=== PATIENT | female | born 1990 | race Caucasian/White ===

== ENCOUNTER 2017-07-07 14:48 | Emergency (ER) | payer OTHER ==
[~2017-07-07] VITALS: Ht 170.2 cm; Wt 65.5 kg
[2017-07-07 14:53] VITALS: TEMP 36.7; Ht 170.2 cm; Wt 65.5 kg
--- NOTE | 2017-07-07 15:14 | EMERGENCY ROOM VISIT NOTE ---
History First contact with patient: 14:57 Chief Complaint: DENTAL PAIN Stated Complaint: MOUTH TEETH HURT, TOOTH INFECTION Nursing Triage Summary: pt reports bilat upper dental dental pain states teeth have been breaking off called dentist has appt on tuesday History of Present Illness The patient is a 27 year old female who presents to the Emergency Room with complaints of dental pain. The patient reports that she believes she may have an infection in her wisdom teeth. She states that a few weeks ago, both of her upper wisdom teeth broke off. She states that she first developed soreness in her left upper teeth, and now has pain in the right upper teeth. She states the pain is constant and makes it very difficult to eat. She describes it as a throbbing pain and rates the discomfort a 6/10. She has been taking Tylenol, ibuprofen and using Orajel without relief. She feels that the right upper jaw is slightly swollen. She denies fevers or difficulty breathing/swallowing. She denies history of dental problems. She did contact a dentist and has an appointment next week. Review of Systems A complete 10 point review of systems was reviewed with the patient with pertinent positives and negatives as per history of present illness. All else were negative. Past Medical/Surgical History Medical Problems: (1) Asthma (2) Bronchitis Family History FH: heart attack FHx: cardiovascular disease Social History Smoking Status: Current Every Day Smoker Alcohol Use: none Marital Status: Housing Status: lives with significant other Current/Historical Medications Scheduled Penicillin V Potassium (Veetids), 500 MG PO QID [Oragel], 1 DOSE PO PRN Scheduled PRN Acetaminophen (Tylenol), 2 TABS PO Q6 PRN for Pain Hydrocodone/Acetaminophen 5MG/325MG (Osage 5MG/325MG), 1-2 TABLET PO Q4H PRN for Pain Ibuprofen (Advil), 400-600 MG PO Q6H PRN for Pain Physical Exam Vital Signs Date Time Temp Pulse Resp B/P (MAP) Pulse Ox O2 Delivery O2 Flow Rate FiO2 07/07/17 15:27 112 18 134/90 99 07/07/17 14:53 36.7 112 18 134/90 99 Room Air Physical Exam VITALS: Vitals are noted on the nurse's note and reviewed by myself. Vital signs stable. GENERAL: This is a 27-year-old female, in no acute distress, nondiaphoretic, well-developed well-nourished. SKIN: The skin was without rashes. EARS: External auditory canals clear, tympanic membranes pearly lara without erythema or effusion bilaterally. EYES: Pupils equal round and reactive to light and accommodation. MOUTH: Mucous membranes moist. The right upper wisdom tooth is broken off and the surrounding gums are slightly edematous. Gums are otherwise normal in appearance. No evidence of obvious abscess. FACE: No facial swelling. NECK: Supple without nuchal rigidity. No lymphadenopathy. HEART: Regular rate and rhythm without murmurs gallops or rubs. LUNGS: Clear to auscultation bilaterally without wheezes, rales or rhonchi. No retractions or accessory muscle use. NEURO: Patient was alert and oriented to person place and time. Medical Decision & Procedures Medical Decision Differential diagnosis includes dental infection, periapical abscess, facial cellulitis, Dami's angina, among others. The patient was evaluated as above. Exam shows no evidence of an obvious dental abscess or Dami's angina. She is well-appearing. She will be placed on penicillin. She was given a short course of Osage for pain. She was advised to follow-up with the dentist as scheduled. She will return for worsening symptoms, specifically facial swelling or fevers. She verbalized understanding of my assessment and treatment plan and was discharged home in good condition. [facility] Monitoring Program Search Results: patient reviewed within database, no issues identified Medication Reconcilliation Current Medication List: was personally reviewed by nh Blood Pressure Screening Patient's blood pressure: Normal blood pressure Impression Primary Impression: Dentalgia Departure Information Dispostion Home / Self-Care Condition GOOD Prescriptions Hydrocodone/Acetaminophen 5MG/325MG (Osage 5MG/325MG) Tab 1-2 TABLET PO Q4H Y for Pain, #15 TAB For Initial Treatment Prov: Taryn Fermin PA-C 07/07/17 Penicillin V Potassium (Veetids) 500 Mg Tab 500 MG PO QID for 10 Days, #40 TAB Prov: Taryn Fermin PA-C 07/07/17 Referrals No Doctor, Assigned (PCP) Patient Instructions [facility] Additional Instructions You have been treated in the Emergency Department for Dental Pain. You have been prescribed Osage to be used for pain control. This is a narcotic medication. You cannot drive or consume alcohol while on this medicine. This medicine should only be used for pain that cannot be controlled with over-the- counter pain medicines. You were prescribed Penicillin to be taken as prescribed. This is an antibiotic. All antibiotics have the potential to cause diarrhea. Stop this medication and contact a medical provider if you were to develop any significant adverse side effects including: wheezing, shortness of breath, passing out, vomiting, or a diffuse rash. Always take antibiotics as directed and COMPLETE the ENTIRE course regardless of the improvement of your symptoms. For pain control, you can use the following [id number] medicines (if >12 yo): - Regular strength (325mg/tab) Tylenol (acetaminophen) 2 tabs every 4-6 hours as needed. Do not exceed 12 tablets in a 24 hour period. Avoid taking more than 4 grams (4000 mg) of Tylenol per day. This includes any other sources of acetaminophen you may take on a regular basis. - Regular strength (200 mg/tab) Advil (ibuprofen) 1-2 tabs every 4-6 hours as needed. Do not exceed a dose of 3200 mg per day. Refrain from smoking cigarettes or using chewing tobacco until you have been evaluated by your dentist. Keeping beverages lukewarm and consuming soft foods can decrease your pain. Warm compresses over the affected area may offer some relief. You MUST seek evaluation of your dental pain by a dentist following your visit to the Emergency Department. The Emergency Department is not capable of treating dental issues long-term. You should call your dentist as soon as possible to make an appointment for evaluation of your dental pain. Return to the emergency department if you develop the following symptoms despite treatment course outlined above: fever, intractable pain, increased redness, swelling, or purulent discharge.
[2017-07-07] MEDS ORDERED: ORAGEL PO (15:17)
[2017-07-07] MEDS ORDERED: ACET-1256 PO (15:17)
[2017-07-07] MEDS ORDERED: IBUP-1050 PO (15:17)
[2017-07-07] MEDS ORDERED: HYDR-5688 PO (15:20)
[2017-07-07] MEDS ORDERED: PENI-82 PO (15:20)
[2017-07-07 15:27] VITALS: BP 134/90; PULSE 112; O2SAT 99
== END 2017-07-07 15:28 | disposition home or self-care (01) ==
LOC: C.EDB 14:49 → C.EDD 15:28
DX: K08.89 Other specified disorders of teeth and supporting structures (principal); F17.210 Nicotine dependence, cigarettes, uncomplicated

== ENCOUNTER 2023-05-28 21:39 | Inpatient (IN) ==
--- NOTE | 2023-05-28 22:10 | Emergency Department Note ---
Impression & Plan SOB (shortness of breath), Asthma exacerbation, Tachycardia, Pneumonia, Rhinovirus infection ED Provider Note NAME: DENNY RAMIREZ AGE: 33 SEX: F : 1990 ARRIVES VIA: Walk-In INFORMANT: [Patient][] ED PROVIDER(S): [Frederick Landaverde MD] CHIEF COMPLAINT: Flulike symptoms HISTORY OF PRESENT ILLNESS: The patient is a 33-year-old female with asthma. She has had flulike symptoms for 2 weeks. She has had a cough, fatigue, nausea, congestion. She has had some body aches. No documented fever. Patient states that 3 days ago, her voice turned hoarse. She states that she vomited yesterday. She feels very nauseated. She feels short of breath. Patient presents to the ED for evaluation as things seem to be getting worse. PMHx/PSHx/Social Hx: See Below PHYSICAL EXAM: GENERAL: Patient is in no acute distress. HEENT: No acute trauma, normocephalic atraumatic, mucous membranes moist, no nasal congestion. No throat erythema or exudate. NECK: No stridor, no adenopathy, no meningismus, trachea is midline. LUNGS: Dry cough noted. Diminished breath sounds bilaterally, wheezing bilaterally. No respiratory distress. Hoarse voice noted. HEART: Mildly tachycardic, regular rhythm, no murmurs. ABDOMEN: Soft, nontender, no peritonitis. EXTREMITIES: No cyanosis, full range of motion of all the joints without pain or difficulty. NEUROLOGIC: Oriented x 3, no acute motor or sensory deficits, no focal weakness. SKIN: No jaundice, no diaphoresis. DIFFERENTIAL DIAGNOSIS: Bronchitis or pneumonia, viral illness, exacerbation of asthma, dehydration, among others. EMERGENCY DEPARTMENT PROCEDURES: MEDICAL DECISION MAKING: There is a significant leukocytosis at 19,000, this would be consistent with infection. There was a normal hemoglobin and platelet count. No renal failure or significant electrolyte abnormality. No concerning liver enzyme elevation. testing was negative. Lactic acid level is currently pending. Blood cultures are pending. Respiratory bio fire was positive for rhinovirus. Chest film shows bilateral lower lung patchy infiltrates consistent with pneumonia. On exam, patient was hoarse, wheezing, tachycardic. The patient was given a DuoNeb, oral prednisone. She received oral doxycycline and IV ceftriaxone. She was given IV Zofran for nausea. Patient has asthma, she has been sick for 2 weeks. She has been vomiting. She is now tachycardic and appears to have pneumonia on x-ray. I do think a hospital stay would be warranted. I spoke with the patient and case management, the on-call hospitalist was consulted. Prior/Outside records/notes reviewed: None Imaging/x-ray results per my interpretation: Chest x-ray shows bilateral lower lobe patchy infiltrates consistent with pneumonia. No pneumothorax. Chronic Medical/Social conditions affecting care: History of asthma Care/Management discussed with: Case management, the on-call hospitalist. Level of care consideration(s): After review of the information above and other included data: --I believe the patient requires escalation of care to admission DISPOSITION: Admission Past Med/Surg History Medical History Asthma Surgical History No pertinent past surgical history Social History Smoking Status: Current every day smoker Preferred Language: [place] Feels Safe at Home: Yes Allergies Allergies Allergy/AdvReac Type Severity Reaction Status Date / Time cat dander Allergy congestion, Verified 05/28/23 23:56 sneezy,whee zing dog dander Allergy congestion, Verified 05/28/23 23:56 sneezy,whee zy Home Meds Home Medications Medication Instructions Recorded Confirmed No Known Home Medications 05/28/23 05/28/23 Results & Data (ED) Vital Signs Vital Signs - 24 hr 05/28/23 21:41 05/28/23 21:56 05/28/23 21:59 Temperature 37 C 36.9 C Temperature Source Temporal Artery Scan Oral Pulse Rate 126 H 105 H Pulse Rate [Right Finger] 110 H Pulse Rhythm Regular Pulse Strength Normal Respiratory Rate 20 16 Respiratory Effort / Characteristics Non-Labored Spontaneous Respiratory Depth Normal Respiratory Pattern Regular Blood Pressure 120/80 Blood Pressure [Right Arm] 123/84 Blood Pressure Mean 93 Blood Pressure Mean [Right Arm] 97 Blood Pressure Position Sitting Pulse Oximetry 97 96 Oxygen Delivery Method Room Air Room Air Sepsis Recent Fever Within 48 Hours Yes Sepsis New/Unexplained Change in Mental Status N/A Sepsis Action Taken by Nursing No Action Required Home Medications Current Medication List: was personally reviewed by me Laboratory Data Attestation: I reviewed the patient's lab results. 05/28/23 22:37 05/28/23 22:37 Lab Results 05/28/23 05/28/23 Range/Units 22:06 22:37 WBC 19.15 H (4.8-10.8) K/ul RBC 4.44 (4.20-5.40) M/uL Hgb 12.9 (12.0-16.0) g/dl Hct 38.8 (37.0-47.0) % MCV 87.4 (80.0-100.0) fL MCH 29.1 (25.0-34.0) pg MCHC 33.2 (32.0-36.0) g/dL RDW Std Deviation 41.6 (36.4-46.3) fL RDW Coeff of Akira 13.1 (11.5-14.5) % Plt Count 372 (130-400) K/uL MPV 9.4 (9.4-12.4) fL Immature Gran % (Auto) 0.7 % Neut % (Auto) 85.0 % Lymph % (Auto) 6.6 % Curry % (Auto) 7.4 % Eos % (Auto) 0.0 % Baso % (Auto) 0.3 % Neut # (Auto) 16.27 H (1.40-6.50) K/uL Lymph # (Auto) 1.26 (1.20-3.40) K/uL Curry # (Auto) 1.42 H (0.11-0.59) K/uL Eos # (Auto) 0.00 (0.00-0.50) K/uL Baso # (Auto) 0.06 (0.00-0.20) K/uL Immature Gran # (Auto) 0.14 (0.01-0.20) K/uL Sodium 134 L (136-145) mmol/L Potassium 4.5 (3.5-5.1) mmol/L Chloride 97 L (98-107) mmol/L Carbon Dioxide 26 (21-32) mmol/L Anion Gap 11 (3-11) BUN 6 (6-23) mg/dl Creatinine 0.55 L (0.6-1.2) mg/dl Est Cr Clr Drug Dosing 127.3 ml/min Est GFR ( Amer) 143.8 ml/min Est GFR (Non-Af Amer) 124.1 ml/min BUN/Creatinine Ratio 10.9 (10-20) Glucose 157 H (70-99(Fasting)) mg/dl Calcium 9.2 (8.6-10.3) mg/dl Total Bilirubin 0.4 (0.2-1.0) mg/dl AST 14 (13-39) U/L ALT 14 (7-52) U/L Alkaline Phosphatase 92 (34-104) U/L Total Protein 7.5 (6.0-8.3) gm/dl Albumin 3.9 (3.4-5.0) gm/dl Globulin 3.6 (2.5-4.0) gm/dl Albumin/Globulin Ratio 1.1 (0.9-2) HCG, Qual Negative (Negative) Adenovirus (PCR) Not Detected (NotDetected) B. pertussis DNA (PCR) Not Detected (NotDetected) B.parapertussis DNA PCR Not Detected (NotDetected) C. pneumoniae DNA (PCR) Not Detected (NotDetected) Coronavirus OC43 (PCR) Not Detected (NotDetected) Coronavirus HKU1 (PCR) Not Detected (NotDetected) Coronavirus 229E (PCR) Not Detected (NotDetected) SARS-CoV-2 (PCR) Not Detected (NotDetected) Coronavirus NL63 (PCR) Not Detected (NotDetected) Human Metapneumovir PCR Not Detected (NotDetected) Influenza Type A (PCR) Not Detected (NotDetected) Influenza Type B (PCR) Not Detected (NotDetected) M. pneumoniae (PCR) Not Detected (NotDetected) Parainfluenza 1 (PCR) Not Detected (NotDetected) Parainfluenza 2 (PCR) Not Detected (NotDetected) Parainfluenza 3 (PCR) Not Detected (NotDetected) Parainfluenza 4 (PCR) Not Detected (NotDetected) RSV (PCR) Not Detected (NotDetected) Entero/Rhino (PCR) DETECTED A (NotDetected) Administered Medications Discontinued Medications Albuterol (Albut/Ipratrop 3mg/0.5mg Neb 3 Ml Vial) 3 ml NEB NOW STA; Protocol Stop: 05/28/23 22:11 Last Admin: 05/28/23 22:20 Dose: 3 ml Documented By: CHELSEY Sodium Chloride (Nss) 1,000 mls @ 999 mls/hr IV .Q1H1M ONE Stop: 05/28/23 23:10 Last Infusion: 05/28/23 23:44 Dose: Infused Documented By: Admin: 05/28/23 22:41 Dose: 999 mls/hr Documented By: CHELSEY Ceftriaxone Sodium (Rocephin) 2,000 mg in 50 mls @ 100 mls/hr IV NOW STA Stop: 05/28/23 23:30 Last Admin: 05/28/23 23:52 Dose: 100 mls/hr Documented By: CHELSEY Ondansetron HCl (Ondansetron Inj 2 Mg/Ml 2 Ml Vial) 4 mg IV NOW STA Stop: 05/28/23 22:11 Last Admin: 05/28/23 22:42 Dose: 4 mg Documented By: CHELSEY Prednisone (Prednisone 50 Mg Tab) 50 mg PO NOW STA Stop: 05/28/23 22:11 Last Admin: 05/28/23 22:20 Dose: 50 mg Documented By: CHELSEY Discharge Plan Visit Data Chief Complaint: Flu Like Symptoms Stated Complaint: COUGH ED Provider: Frederick Landaverde Discharge Problem: SOB (shortness of breath), Asthma exacerbation, Tachycardia, Pneumonia, Rhinovirus infection Patient Disposition: Admitted As Inpatient Condition: Fair Forms Stand Alone Forms: [employer] Software Prescriptions Prescriptions: No Action No Known Home Medications Referrals Referrals: PCP,NO [Physician] - Discharge Problem: Asthma exacerbation Qualifiers: Asthma severity: moderate Asthma persistence: persistent Qualified Code(s): J 45.41 - Moderate persistent asthma with (acute) exacerbation Pneumonia Qualifiers: Pneumonia type: due to unspecified organism Laterality: bilateral Lung location: unspecified part of lung Qualified Code(s): J18.9 - Pneumonia, unspecified organism
[2023-05-28] MEDS: ALBUT/IPRATROP 3MG/0.5MG NEB 3 ML VIAL NEB STA (22:20)
[2023-05-28] MEDS: predniSONE 50 MG TAB PO STA (22:20)
[2023-05-28] MEDS: SODIUM CHLORIDE 0.9% 1,000 ML IV ONE (22:41)
[2023-05-28] MEDS: ONDANSETRON INJ 2 MG/ML 2 ML VIAL IV STA (22:42)
[2023-05-28 22:58] LABS: Basophils # (auto) 0.06 K/uL (0.00-0.20); Basophils % (auto) 0.3 %; Hematocrit (blood only) 38.8 % (37.0-47.0); Hemoglobin 12.9 g/dl (12.0-16.0); Immature Granulocytes # (auto) 0.14 K/uL (0.01-0.20); Immature Granulocytes % (auto) 0.7 %; Lymphocytes # (auto) 1.26 K/uL (1.20-3.40); Lymphocytes % (auto) 6.6 %; Mean Corpuscular Hemoglobin 29.1 pg (25.0-34.0); Mean Corpuscular Hgb Conc 33.2 g/dL (32.0-36.0); Mean Corpuscular Volume 87.4 fL (80.0-100.0); Mean Platelet Volume 9.4 fL (9.4-12.4); Monocytes # (auto) 1.42 K/uL (0.11-0.59); Monocytes % (auto) 7.4 %; Neutrophils # (auto) 16.27 K/uL (1.40-6.50); Platelet Count 372 K/uL (130-400); RDW Coefficient of Variation 13.1 % (11.5-14.5); RDW Standard Deviation 41.6 fL (36.4-46.3); Red Blood Count 4.44 M/uL (4.20-5.40); White Blood Count 19.15 K/ul (4.8-10.8)
[2023-05-28 23:10] LABS: Albumin Globulin Ratio 1.1 (0.9-2); Albumin Level 3.9 gm/dl (3.4-5.0); BUN Creatinine Ratio 10.9 (10-20); Bilirubin,Total 0.4 mg/dl (0.2-1.0); Calcium 9.2 mg/dl (8.6-10.3); Creatinine Clr Calc Pharmacy 127.3 ml/min; Est GFR (African American) 143.8 ml/min; Est GFR (Non-African American) 124.1 ml/min; Globulin 3.6 gm/dl (2.5-4.0); Potassium 4.5 mmol/L (3.5-5.1); Total Protein 7.5 gm/dl (6.0-8.3)
[2023-05-28 23:18] LABS: Adenovirus PCR Not Detected (NotDetected); Bordetella parapertussis PCR Not Detected (NotDetected); Bordetella pertussis PCR Not Detected (NotDetected); Chlamydia pneumoniae PCR Not Detected (NotDetected); Coronavirus 229E PCR Not Detected (NotDetected); Coronavirus CoV-2 (COVID19)PCR Not Detected (NotDetected); Coronavirus HKU1 PCR Not Detected (NotDetected); Coronavirus NL63 PCR Not Detected (NotDetected); Coronavirus OC43PCR Not Detected (NotDetected); Human Metapneumovirus PCR Not Detected (NotDetected); Influenza A PCR Not Detected (NotDetected); Influenza B PCR Not Detected (NotDetected); Mycoplasma pneumoniae PCR Not Detected (NotDetected); Parainfluenza Virus 1 PCR Not Detected (NotDetected); Parainfluenza Virus 2 PCR Not Detected (NotDetected); Parainfluenza Virus 3 PCR Not Detected (NotDetected); Parainfluenza Virus 4 PCR Not Detected (NotDetected); Respiratory Syncytial VirusPCR Not Detected (NotDetected); Rhinovirus/Enterovirus PCR DETECTED (NotDetected)
[2023-05-28 23:28] LABS: Pregnancy Test, Serum Negative (Negative)
[2023-05-28] MEDS: cefTRIAXone SODIUM 2,000 MG/50 ML BAG IV STA (23:44)
--- NOTE | 2023-05-29 00:10 | History & Physical Report ---
Date of Service May 29, 2023 Assessment & Plan (1) Severe sepsis: Plan: SIRS plus lactic acidosis secondary to community-acquired pneumonia Initial rhinovirus with superimposed bacterial infection Asthma exacerbation secondary to above, patient describes persistent asthma of at least moderate severity given almost daily use of mother's MDI medication Hyperglycemia rule out DM Ongoing tobacco abuse Medical telemetry CS, Ruth Da Silva RTC, steroid course Pulmonary consult Re: Asthma exacerbation, moderate persistent asthma Check hemoglobin A1c Nicotine replacement therapy as needed DVT prophylaxis. Lovenox subcu Full code Text document was generated using [employer] voice recognition software. It may contain grammatical or spelling errors. Kindly contact undersigned for clarification of any documentation item in question. History of Present Illness Chief Complaint: Worsening cough, shortness of breath Primary Care Provider: None Patient interested in following up at [facility] for PCP services on discharge. History obtained from patient, family, and records. Medical history significant for asthma, ongoing tobacco abuse. Patient noted worsening asthma symptoms since last year. Has not had a PCP for years. Patient would use mother's MDI for daily cough symptoms. 2-week history of flulike symptoms followed by dry cough later productive of junky green sputum. Shortness of breath and bodyaches. Denies aspiration. Some nausea and emesis without abdominal pain. Hoarseness noted 3 days ago. Sick contacts at home. Prednisone, doxycycline, and ceftriaxone administered at the ER. Medical History as above Surgical History : Eye surgery Family History : COPD Personal/Social history : 2 cigarettes a day, occasional EtOH intake, unemployed Allergies Allergy/AdvReac Type Severity Reaction Status Date / Time cat dander Allergy congestion, Verified 05/28/23 23:56 sneezy,whee zing dog dander Allergy congestion, Verified 05/28/23 23:56 sneezy,whee zy Home Medications Medication Instructions Recorded Confirmed Type No Known Home Medications 05/28/23 05/28/23 History Past Med/Surg History Medical History Asthma Surgical History No pertinent past surgical history Social History Smoking Status: Current every day smoker Tobacco Type: Cigarettes Hx Alcohol Use: No Hx Substance Use: No Preferred Language: Indian Communication Ability: Effective Beliefs That Will Affect Care: None Current Living Situation: Spouse Feels Safe at Home: Yes Safety Concerns: Feels Safe At This Time Review of Systems Review of Systems: As per HPI, all other systems reviewed and negative Physical Exam Physical Exam: GENERAL: Comfortable, dysphonic, no respiratory distress SKIN: Normal color, warm HEENT: [place] palpebral conjunctivae, no ptosis, dry buccal mucosa NECK : Supple, no tenderness CHEST : Decreased breath sounds, diffuse expiratory wheezes, no tenderness HEART : Tachycardic, no obvious murmurs ABDOMEN: Some distention, nontender EXTREMITIES : No LE swelling/tenderness, no other conspicuous deformities noted NEUROLOGIC : Coherent, no facial asymmetry, no other gross focality Results & Data Results & Data Vital Signs (Past 12 Hours) Vital Signs Temp Pulse Pulse Resp BP BP Pulse Ox 05/28/23 21:59 36.9 C 110 H 16 123/84 96 05/28/23 21:56 105 H 05/28/23 21:41 37 C 126 H 20 120/80 97 O2 Del Method 05/28/23 21:59 Room Air 05/28/23 21:56 05/28/23 21:41 Room Air Laboratory Results Laboratory Results WBC 19.15 K/ul (4.8-10.8) H 05/28/23 22:37 RBC 4.44 M/uL (4.20-5.40) 05/28/23 22:37 Hgb 12.9 g/dl (12.0-16.0) 05/28/23 22:37 Hct 38.8 % (37.0-47.0) 05/28/23 22:37 MCV 87.4 fL (80.0-100.0) 05/28/23 22:37 MCH 29.1 pg (25.0-34.0) 05/28/23 22:37 MCHC 33.2 g/dL (32.0-36.0) 05/28/23 22:37 RDW Std Deviation 41.6 fL (36.4-46.3) 05/28/23 22:37 RDW Coeff of Akira 13.1 % (11.5-14.5) 05/28/23 22:37 Plt Count 372 K/uL (130-400) 05/28/23 22:37 MPV 9.4 fL (9.4-12.4) 05/28/23 22:37 Immature Gran % (Auto) 0.7 % 05/28/23 22:37 Neut % (Auto) 85.0 % 05/28/23 22:37 Lymph % (Auto) 6.6 % 05/28/23 22:37 [place] % (Auto) 7.4 % 05/28/23 22:37 Eos % (Auto) 0.0 % 05/28/23 22:37 Baso % (Auto) 0.3 % 05/28/23 22:37 Neut # (Auto) 16.27 K/uL (1.40-6.50) H 05/28/23 22:37 Lymph # (Auto) 1.26 K/uL (1.20-3.40) 05/28/23 22:37 [place] # (Auto) 1.42 K/uL (0.11-0.59) H 05/28/23 22:37 Eos # (Auto) 0.00 K/uL (0.00-0.50) 05/28/23 22:37 Baso # (Auto) 0.06 K/uL (0.00-0.20) 05/28/23 22:37 Immature Gran # (Auto) 0.14 K/uL (0.01-0.20) 05/28/23 22:37 Sodium 134 mmol/L (136-145) L 05/28/23 22:37 Potassium 4.5 mmol/L (3.5-5.1) 05/28/23 22:37 Chloride 97 mmol/L (98-107) L 05/28/23 22:37 Carbon Dioxide 26 mmol/L (21-32) 05/28/23 22:37 Anion Gap 11 (3-11) 05/28/23 22:37 BUN 6 mg/dl (6-23) 05/28/23 22:37 Creatinine 0.55 mg/dl (0.6-1.2) L 05/28/23 22:37 Est Cr Clr Drug Dosing 127.3 ml/min 05/28/23 22:37 Est GFR ( Amer) 143.8 ml/min 05/28/23 22:37 Est GFR (Non-Af Amer) 124.1 ml/min 05/28/23 22:37 BUN/Creatinine Ratio 10.9 (10-20) 05/28/23 22:37 Glucose 157 mg/dl (70-99(Fasting)) H 05/28/23 22:37 Calcium 9.2 mg/dl (8.6-10.3) 05/28/23 22:37 Total Bilirubin 0.4 mg/dl (0.2-1.0) 05/28/23 22:37 AST 14 U/L (13-39) 05/28/23 22:37 ALT 14 U/L (7-52) 05/28/23 22:37 Alkaline Phosphatase 92 U/L (34-104) 05/28/23 22:37 Total Protein 7.5 gm/dl (6.0-8.3) 05/28/23 22:37 Albumin 3.9 gm/dl (3.4-5.0) 05/28/23 22:37 Globulin 3.6 gm/dl (2.5-4.0) 05/28/23 22:37 Albumin/Globulin Ratio 1.1 (0.9-2) 05/28/23 22:37 HCG, Qual Negative (Negative) 05/28/23 22:37 Adenovirus (PCR) Not Detected (NotDetected) 05/28/23 22:06 B. pertussis DNA (PCR) Not Detected (NotDetected) 05/28/23 22:06 B.parapertussis DNA PCR Not Detected (NotDetected) 05/28/23 22:06 C. pneumoniae DNA (PCR) Not Detected (NotDetected) 05/28/23 22:06 Coronavirus OC43 (PCR) Not Detected (NotDetected) 05/28/23 22:06 Coronavirus HKU1 (PCR) Not Detected (NotDetected) 05/28/23 22:06 Coronavirus 229E (PCR) Not Detected (NotDetected) 05/28/23 22:06 SARS-CoV-2 (PCR) Not Detected (NotDetected) 05/28/23 22:06 Coronavirus NL63 (PCR) Not Detected (NotDetected) 05/28/23 22:06 Human Metapneumovir PCR Not Detected (NotDetected) 05/28/23 22:06 Influenza Type A (PCR) Not Detected (NotDetected) 05/28/23 22:06 Influenza Type B (PCR) Not Detected (NotDetected) 05/28/23 22:06 M. pneumoniae (PCR) Not Detected (NotDetected) 05/28/23 22:06 Parainfluenza 1 (PCR) Not Detected (NotDetected) 05/28/23 22:06 Parainfluenza 2 (PCR) Not Detected (NotDetected) 05/28/23 22:06 Parainfluenza 3 (PCR) Not Detected (NotDetected) 05/28/23 22:06 Parainfluenza 4 (PCR) Not Detected (NotDetected) 05/28/23 22:06 RSV (PCR) Not Detected (NotDetected) 05/28/23 22:06 Entero/Rhino (PCR) DETECTED (NotDetected) A 05/28/23 22:06 CT chest: Moderate airspace consolidations, PREFERENTIALLY involving the right middle lobe, lingula, and lung bases, consistent with multilobar pneumonia. Diagnostic Findings EKG as per my interpretation : Rate 70, NSR, normal axis, no ischemia, QTc 380
[2023-05-29] MEDS ORDERED: IBUPROFEN 200 MG TAB PO PRN (00:12)
[2023-05-29] MEDS ORDERED: PROMETHAZINE HCL 6.25 MG in SODIUM CHLORIDE 0.9% 50 ML IV PRN (00:12)
[2023-05-29] MEDS ORDERED: ACETAMINOPHEN 325 MG TAB PO PRN (00:12)
[2023-05-29] MEDS: DOXYCYCLINE HYCLATE 100 MG CAP PO STA (00:13)
[2023-05-29] MEDS ORDERED: hydrOXYzine HCl 10 MG TAB PO PRN (00:14)
[2023-05-29 00:26] LABS: Partial Thromboplastin Ratio 0.9; Partial Thromboplastin Time 26 Seconds (21-31)
[2023-05-29 00:30] LABS: Magnesium 1.9 mg/dl (1.7-2.4)
[2023-05-29] MEDS: SODIUM CHLORIDE 0.9% 1,000 ML IV ONE (00:42)
[2023-05-29] MEDS: OPTIRAY 320 125ml IV ONE (00:46)
[2023-05-29] MEDS ORDERED: methylPREDNISolone 40 MG in SYRINGE 0 ML IV ONE (01:19)
[2023-05-29] MEDS: MAGNESIUM SULFATE / D5W 1 GM/100 ML BAG IV ONE (01:37)
[2023-05-29] MEDS: methylPREDNISolone 125 MG/2 ML VIAL IV STA (01:39)
--- NOTE | 2023-05-29 02:11 | CT Scan Report ---
Exam(s): CTA CHEST IV Amt: 117 ML EXAM: CT Angiography Chest With Intravenous Contrast CLINICAL HISTORY: Reason for exam: sob. TECHNIQUE: Axial computed tomographic angiography images of the chest with intravenous contrast. CTDI is 19 mGy and DLP is 305.84 mGy-cm. Automated exposure control was utilized for the study. A dose lowering technique was utilized adhering to the principles of ALARA. MIP reconstructed images were created and reviewed. COMPARISON: No relevant prior studies available. FINDINGS: Pulmonary arteries: Unremarkable. No pulmonary embolism. Aorta: No acute findings. No thoracic aortic aneurysm. Lungs: Moderate airspace consolidations, perforation involving the right middle lobe, lingula, and lung bases, consistent with multilobar pneumonia. Pleural space: Unremarkable. No significant effusion. No pneumothorax. Heart: Unremarkable. No cardiomegaly. No significant pericardial effusion. No evidence of RV dysfunction. Bones/joints: No acute fracture. No dislocation. Soft tissues: Unremarkable. Lymph nodes: Unremarkable. No enlarged lymph nodes. IMPRESSION: Moderate airspace consolidations, perforation involving the right middle lobe, lingula, and lung bases, consistent with multilobar pneumonia. Electronically signed by: Sanjeev Puckett MD 05/29/23 02:10 AM
[2023-05-29] MEDS: LACTATED RINGER'S 1,000 ML IV ONE (02:26)
[2023-05-29 03:56] LABS: Base Excess ABG -0.2 mEq/L (-9-1.8); HCO3 ABG 24 mmol/L (19-24); Oxygen Saturation ABG 96.7 % (90-95); PCO2 ABG 37 mmHg (35-46); PO2 ABG 71 mmHg (80-95); pH ABG 7.42 (7.35-7.45)
[2023-05-29 04:01] LABS: Allen Test Pos (Pos)
[2023-05-29 04:09] LABS: Hematocrit (blood only) 33.9 % (37.0-47.0); Hemoglobin 11.1 g/dl (12.0-16.0); Mean Corpuscular Hemoglobin 28.7 pg (25.0-34.0); Mean Corpuscular Hgb Conc 32.7 g/dL (32.0-36.0); Mean Corpuscular Volume 87.6 fL (80.0-100.0); Mean Platelet Volume 9.5 fL (9.4-12.4); Platelet Count 328 K/uL (130-400); RDW Coefficient of Variation 13.1 % (11.5-14.5); RDW Standard Deviation 41.7 fL (36.4-46.3); Red Blood Count 3.87 M/uL (4.20-5.40); White Blood Count 17.79 K/ul (4.8-10.8)
[2023-05-29 04:17] LABS: Anion Gap 9 (3-11); BUN Creatinine Ratio 8.9 (10-20); Blood Urea Nitrogen 4 mg/dl (6-23); Carbon Dioxide 22 mmol/L (21-32); Chloride 102 mmol/L (98-107); Creatinine Clr Calc Pharmacy 155.6 ml/min; Est GFR (African American) > 150.0 ml/min; Est GFR (Non-African American) 132.6 ml/min; Glucose 228 mg/dl (70-99(Fasting)); Potassium 3.8 mmol/L (3.5-5.1); Sodium 133 mmol/L (136-145)
[2023-05-29 04:31] LABS: Basophils # (auto) 0.04 K/uL (0.00-0.20); Basophils % (auto) 0.2 %; Immature Granulocytes # (auto) 0.13 K/uL (0.01-0.20); Immature Granulocytes % (auto) 0.7 %; Lymphocytes # (auto) 0.85 K/uL (1.20-3.40); Lymphocytes % (auto) 4.8 %; Monocytes # (auto) 0.47 K/uL (0.11-0.59); Monocytes % (auto) 2.6 %; Neutrophils % (auto) 91.7 %; RBC Morphology Unremarkable
[2023-05-29] MEDS: LEVALBUTEROL 1.25 MG/3 ML NEB NEB SCH (05:17)
[2023-05-29] MEDS: IPRATROPIUM BROMIDE NEB SOLN 0.02% 0.5MG/2.5ML VIAL INH SCH (05:17)
[2023-05-29] MEDS: NSS + 20MEQ KCL 20 MEQ/1,000 ML BAG IV ONE (06:04)
[2023-05-29 07:12] LABS: Estimated Average Glucose 131 mg/dl; Hemoglobin A1C 6.2 % (4.5-5.6)
--- NOTE | 2023-05-29 07:32 | Pulmonary Consultation ---
Date of Consultation May 29, 2023 Assessment & Plan (1) Asthma exacerbation: Asthma persistence: persistent Asthma severity: moderate Qualified Code(s): J45.41 - Moderate persistent asthma with (acute) exacerbation (2) Pneumonia: Laterality: bilateral Lung location: unspecified part of lung Pneumonia type: due to unspecified organism Qualified Code(s): J18.9 - Pneumonia, unspecified organism (3) Rhinovirus infection: Plan Impression: 33-year-old female with prior history of asthma who actively abuses tobacco products admitted for asthma exacerbation with multifocal airspace opacities on CT scan. Fortunately she is on room air and appears to be improving with the exception of a mild tachycardia. Recommendations: 1. Community-acquired pneumonia: Multifocal. Continue therapy with Rocephin and azithromycin. Would favor avoiding fluoroquinolones as the patient does not have risk factors for Pseudomonas and given pneumococcal resistance patterns with fluoroquinolones this would not be recommended first-line therapy. In addition, would like to reserve fluoroquinolones in the event the patient requires more broad-spectrum antibiotics in the future. Can likely transition to Ceftin and azithromycin to complete a 5 to 7-day course of antibiotics when appropriate. No specific therapy for rhinovirus. This virus can cause bronchiolitis on CT scan. 2. Asthma: Recommend starting Breo. Continue as needed albuterol Atrovent. I agree with prednisone 40 mg a day for 5 days. 3. Smoking cessation recommended. 4. Abnormal CT scan: Suspect this represents infectious/inflammatory etiology. Follow-up CT imaging in 8 to 12 weeks is recommended to document resolution and ensure no evidence of bronchiectasis or other potential underlying lung disease. Patient appears to be responding favorably and may be able to dismiss from the hospital in the next 24 hours if she is doing well. I would be happy to see her back in the pulmonary clinic to arrange appropriate outpatient follow-up for her if needed. Thanks for the opportunity of participating in the care of this patient. Feel free to contact us with questions or concerns. History of Present Illness Attending Physician: Daren Shaikh MD History of Present Illness Asked by hospitalist to assist in evaluation management this patient minute with an abnormal CT scan and asthma exacerbation. History is obtained from discussion with the patient as well as review electronic medical record. Patient is a 33-year-old female who smokes about a pack per day. She states she was diagnosed with asthma as a child. She believes she may have had PFTs performed previously but she states she does not go to a doctor on a regular basis. The patient as rescue albuterol as well as nebulizer at home. She states she uses the nebulizer prematurely morning when she wakes up but she does not use a full dose of the medication. She uses maybe a third of a vial and that tends to relieve her symptoms and she does relatively well throughout the day. She is not had an exacerbation or been admitted to the hospital previously for her breathing. The patient states that she has been ill for about a week. She lost her voice about 3 days ago. She has had subjective fevers and chills at home. She has had some sinus discharge and drainage. She has had ill contacts in the form of her . She presented to the emergency room and was noted to be tachycardic. She was nauseated yesterday. She was treated with doxycycline, ceftriaxone, prednisone, and a DuoNeb. He was admitted to the hospitalist service. Initially antibiotics were changed to levofloxacin however I changed them to Rocephin and azithromycin this morning. The patient reports that she is feeling much better. The patient is a homemaker. She has no significant occupational or environmental exposures. No history of THC exposure or other inhalational exposures. She denies any vaping or e-cigarette use. She states she is allergic to cats and does have cats at home but she is always had cats and these have never really presented a problem for her. Family history is unrevealing Allergies Allergy/AdvReac Type Severity Reaction Status Date / Time cat dander Allergy congestion, Verified 05/28/23 23:56 sneezy,whee zing dog dander Allergy congestion, Verified 05/28/23 23:56 sneezy,whee zy Home Medications Medication Instructions Recorded Confirmed Type No Known Home Medications 05/28/23 05/28/23 History Patient History Medical History Asthma Surgical History No pertinent past surgical history Social History Smoking Status: Current every day smoker Tobacco Type: Cigarettes Hx Alcohol Use: No Hx Substance Use: No Preferred Language: Italian Communication Ability: Effective Beliefs That Will Affect Care: None Current Living Situation: Spouse Feels Safe at Home: Yes Safety Concerns: Feels Safe At This Time Review of Systems Review of Systems: Please refer to admission H&P. No additions or deletions Physical Exam Constitutional: WD/WN, vitals as above Neck: trachea midline, no thyromegaly Respiratory: normal respiratory effort, lungs clear to auscultation Cardiovascular: RRR, no murmur, no edema Gastrointestinal (Abdomen): normal bowel sounds, soft, nontender, no hepatosplenomegaly Musculoskeletal: Extremities: extremities normal to inspection Skin: no rashes, warm and dry Neurologic: Nonfocal exam Lymphatic: no cervical lymphadenopathy Results & Data Results & Data Vital Signs (Past 12 Hours) Vital Signs Temp Pulse Pulse Resp BP BP Pulse Ox 05/29/23 07:08 05/29/23 07:08 114 H 18 124/91 90 05/29/23 06:09 117 H 22 126/84 91 05/29/23 04:48 105/74 05/29/23 04:48 63 22 105/74 93 05/29/23 04:00 73 14 105/74 91 05/29/23 03:01 05/29/23 03:00 05/29/23 02:49 74 24 106/65 92 05/29/23 02:28 85 18 96 05/29/23 02:10 78 22 107/71 96 05/29/23 02:04 101 H 05/29/23 00:50 92 H 19 118/77 96 05/28/23 22:00 110 H 16 123/84 97 05/28/23 21:59 36.9 C 110 H 16 123/84 96 05/28/23 21:56 105 H 05/28/23 21:41 37 C 126 H 20 120/80 97 Pulse Ox O2 Del Method O2 Del Method 05/29/23 07:08 Room Air 05/29/23 07:08 Room Air 05/29/23 06:09 Room Air 05/29/23 04:48 05/29/23 04:48 Room Air 05/29/23 04:00 Room Air 05/29/23 03:01 94 Room Air 05/29/23 03:00 Room Air 05/29/23 02:49 Room Air 05/29/23 02:28 Room Air 05/29/23 02:10 05/29/23 02:04 05/29/23 00:50 05/28/23 22:00 05/28/23 21:59 Room Air 05/28/23 21:56 05/28/23 21:41 Room Air Critical Care Results & Data Vital Signs (Past 12 Hours) Vital Signs Temp Pulse Pulse Resp BP BP Pulse Ox 05/29/23 07:08 05/29/23 07:08 114 H 18 124/91 90 05/29/23 06:09 117 H 22 126/84 91 05/29/23 04:48 105/74 05/29/23 04:48 63 22 105/74 93 05/29/23 04:00 73 14 105/74 91 05/29/23 03:01 05/29/23 03:00 05/29/23 02:49 74 24 106/65 92 05/29/23 02:28 85 18 96 05/29/23 02:10 78 22 107/71 96 05/29/23 02:04 101 H 05/29/23 00:50 92 H 19 118/77 96 05/28/23 22:00 110 H 16 123/84 97 05/28/23 21:59 36.9 C 110 H 16 123/84 96 05/28/23 21:56 105 H 05/28/23 21:41 37 C 126 H 20 120/80 97 Pulse Ox O2 Del Method O2 Del Method 05/29/23 07:08 Room Air 05/29/23 07:08 Room Air 05/29/23 06:09 Room Air 05/29/23 04:48 05/29/23 04:48 Room Air 05/29/23 04:00 Room Air 05/29/23 03:01 94 Room Air 05/29/23 03:00 Room Air 05/29/23 02:49 Room Air 05/29/23 02:28 Room Air 05/29/23 02:10 05/29/23 02:04 05/29/23 00:50 05/28/23 22:00 05/28/23 21:59 Room Air 05/28/23 21:56 05/28/23 21:41 Room Air Lab & Micro Results (Past 24 Hours) RBC 3.87 M/uL (4.20-5.40) L 05/29/23 WBC 17.79 K/ul (4.8-10.8) H 05/29/23 Hgb 11.1 g/dl (12.0-16.0) L 05/29/23 Hct 33.9 % (37.0-47.0) L 05/29/23 MCV 87.6 fL (80.0-100.0) 05/29/23 MCH 28.7 pg (25.0-34.0) 05/29/23 MCHC 32.7 g/dL (32.0-36.0) 05/29/23 RDW Standard Deviation 41.7 fL (36.4-46.3) 05/29/23 RDW Coefficient of Variation 13.1 % (11.5-14.5) 05/29/23 Plt Count 328 K/uL (130-400) 05/29/23 MPV 9.5 fL (9.4-12.4) 05/29/23 Neutrophils (%) (Auto) 91.7 % 05/29/23 Lymphocytes (%) (Auto) 4.8 % 05/29/23 Monocytes # (Auto) 0.47 K/uL (0.11-0.59) 05/29/23 Eosinophils # (Auto) 0.00 K/uL (0.00-0.50) 05/29/23 Immature Granulocyte % (Auto) 0.7 % 05/29/23 Neutrophils # (Auto) 16.30 K/uL (1.40-6.50) H 05/29/23 Lymphocytes # (Auto) 0.85 K/uL (1.20-3.40) L 05/29/23 Monocytes # (Auto) 0.47 K/uL (0.11-0.59) 05/29/23 Eosinophils # (Auto) 0.00 K/uL (0.00-0.50) 05/29/23 Basophils # (Auto) 0.04 K/uL (0.00-0.20) 05/29/23 Immature Granulocyte # (Auto) 0.13 K/uL (0.01-0.20) 4 Red Blood Cell Morphology Unremarkable 05/29/23 Na 133 mmol/L (136-145) L 05/29/23 K 3.8 mmol/L (3.5-5.1) 05/29/23 Cl 102 mmol/L (98-107) 05/29/23 CO2 22 mmol/L (21-32) 05/29/23 Anion Gap 9 (3-11) 05/29/23 BUN 4 mg/dl (6-23) L 05/29/23 Creatinine 0.45 mg/dl (0.6-1.2) L 05/29/23 Estimated GFR ( Amer) > 150.0 ml/min 05/29/23 Estimated GFR (Non-Af Amer) 132.6 ml/min 05/29/23 BUN/Creatinine Ratio 8.9 (10-20) L 05/29/23 Glu 228 mg/dl (70-99(Fasting)) H 05/29/23 Ca 8.0 mg/dl (8.6-10.3) L 05/29/23 Total Bilirubin 0.4 mg/dl (0.2-1.0) 05/28/23 AST 14 U/L (13-39) 05/28/23 ALT 14 U/L (7-52) 05/28/23 Alkaline Phosphatase 92 U/L (34-104) 05/28/23 TP 7.5 gm/dl (6.0-8.3) 05/28/23 Albumin 3.9 gm/dl (3.4-5.0) 05/28/23 Globulin 3.6 gm/dl (2.5-4.0) 05/28/23 Albumin/Globulin Ratio 1.1 (0.9-2) 05/28/23 Mg 1.9 mg/dl (1.7-2.4) 05/28/23 22:37 Calcium Level 8.0 mg/dl (8.6-10.3) L 05/29/23 03:41 Arterial Blood pH 7.42 (7.35-7.45) 05/29/23 03:41 Arterial Blood Partial Pressure CO2 37 mmHg (35-46) 05/29/23 03 :41 Arterial Blood Partial Pressure O2 71 mmHg (80-95) L 05/29/23 0 3:41 Arterial Blood HCO3 24 mmol/L (19-24) 05/29/23 03:41 Arterial Blood Base Excess -0.2 mEq/L (-9-1.8) 05/29/23 03:41 Arterial Blood Oxygen Saturation 96.7 % (90-95) H 05/29/23 03:4 1 Blood Gas Oxygen Given ROOM AIR 05/29/23 03:41 David Test Pos (Pos) 05/29/23 03:41 Diagnostic Findings (Past 24 Hours) Chest CTA 05/29/23 00:09 Exam(s): CTA CHEST IV Amt: 117 ML EXAM: CT Angiography Chest With Intravenous Contrast CLINICAL HISTORY: Reason for exam: sob. TECHNIQUE: Axial computed tomographic angiography images of the chest with intravenous contrast. CTDI is 19 mGy and DLP is 305.84 mGy-cm. Automated exposure control was utilized for the study. A dose lowering technique was utilized adhering to the principles of ALARA. MIP reconstructed images were created and reviewed. COMPARISON: No relevant prior studies available. FINDINGS: Pulmonary arteries: Unremarkable. No pulmonary embolism. Aorta: No acute findings. No thoracic aortic aneurysm. Lungs: Moderate airspace consolidations, perforation involving the right middle lobe, lingula, and lung bases, consistent with multilobar pneumonia. Pleural space: Unremarkable. No significant effusion. No pneumothorax. Heart: Unremarkable. No cardiomegaly. No significant pericardial effusion. No evidence of RV dysfunction. Bones/joints: No acute fracture. No dislocation. Soft tissues: Unremarkable. Lymph nodes: Unremarkable. No enlarged lymph nodes. IMPRESSION: Moderate airspace consolidations, perforation involving the right middle lobe, lingula, and lung bases, consistent with multilobar pneumonia. Electronically signed by: Sanjeev Puckett MD 05/29/23 02:10 AM I & O Totals 24 Hours 05/28/23 05/29/23 05/30/23 06:59 06:59 06:59 Intake Total 3550 / 3550 Balance 3550 / 3550 Cumulative 05/28/23 21:39 thru 05/29/23 06:00 Intake Total 3550 Balance 3550 RT Ventilator Mngmt (Last Documented) Ventilator Ordered Settings Respiratory Rate 18 05/29/23 07:08 Ventilator - PT Measurements Respiratory Rate 18 PG Care Time/CCT Total # of Minutes Spent Total Time Spent with Patient: Total time spent is greater than 50% in coordination of care (as documented) at patient's floor/unit and/or counseling patient: Coding Level of Care Code 38627 IN/OBS CONSULT LVL 4,60M Diagnoses Asthma exacerbation J45.41 Asthma persistence: persistent Asthma severity: moderate Pneumonia J18.9 Laterality: bilateral Lung location: unspecified part of lung Pneumonia type: due to unspecified organism Rhinovirus infection B34.8
--- NOTE | 2023-05-29 08:32 | XRay Report ---
XR chest 1V portable CLINICAL HISTORY: sob TECHNIQUE: Single frontal radiograph of the chest was obtained. Comparison: Comparison is made to CTA chest 06/17/2022 FINDINGS: No lines and tubes are seen. The cardiomediastinal silhouette is normal. Faint bibasilar airspace opa cities are seen. No evidence of pleural effusion or pneumothorax. IMPRESSION: Faint bibasilar airspace opacities which may represent atelectasis, pneumonia, and/or aspiration. ACT 112: Negative or not required by law. Electronically signed by: Gabriel Zimmerman M.D. 05/29/2023 8:30 AM
--- NOTE | 2023-05-29 08:39 | Electrocardiogram Report ---
Test Reason : Blood Pressure : / mmHG Vent. Rate : 071 BPM Atrial Rate : 071 BPM P-R Int : 136 ms QRS Dur : 080 ms QT Int : 350 ms P-R-T Axes : 081 088 065 degrees QTc Int : 380 ms Normal sinus rhythm with sinus arrhythmia Normal ECG When compared with ECG of 17-JUN-2022 15:04, No significant change was found Confirmed by Alexandre Hercules ([id number]) on 05/29/2023 8:38:36 AM Referred By: REFERRED SELF Confirmed By:Alexandre Hercules
[2023-05-29] MEDS: AZITHROMYCIN 250 MG TAB PO SCH (08:54)
[2023-05-29] MEDS: ENOXAPARIN INJ 30 MG/0.3 ML SYR SQ SCH (08:55)
[2023-05-29] MEDS ORDERED: predniSONE 20 MG TAB PO SCH (09:00)
[2023-05-29] MEDS ORDERED: levoFLOXacin 750 MG TAB PO SCH (11:00)
--- NOTE | 2023-05-29 16:55 | Communication Note ---
Date of Service: May 29, 2023 Seen resting in bed, comfortable, not in distress On room air States breathing is improved compared to yesterday Still having some cough, productive of yellow sputum No chest pain No fevers or chills No other new symptom Vital signs noted and reviewed General- oriented x 3, not in distress, speaks in sentences with no effort or accessory muscle use Eyes- anicteric Neck- no JVD Lungs-mild crackles bilaterally, intermittent wheezing Heart- normal rate, regular rhythm; no murmurs Abdomen- normal bowel sounds, nondistended, soft, nontender Extremities- no pretibial edema, no calf tenderness Neuro- alert, oriented x 3; no gross focal neurologic deficits Skin- warm & dry All labs noted and reviewed Multifocal pneumonia Rhinovirus CT: Positive for pneumonia Continue nebs every 6 hours, ceftriaxone, azithromycin, prednisone Follow-up cultures Pulmonology on board Appreciate the recommendations plan of care discussed with patient in detail and at length all questions answered She is understanding, agreeable, comfortable with the plan of care Daren Shaikh MD
[2023-05-29] MEDS: MELATONIN 3 MG TAB PO PRN (19:26)
[2023-05-29] MEDS: ACETAMINOPHEN 325 MG TAB PO PRN (19:26)
[2023-05-29] MEDS: cefTRIAXone SODIUM 2,000 MG in DEXTROSE 5 % MINI-B 50 ML IV SCH (22:08)
[2023-05-30] MEDS: BENZONATATE 100 MG CAPSULE PO ONE (02:02)
[2023-05-30] MEDS: NSS + 20MEQ KCL 20 MEQ/1,000 ML BAG IV ONE (02:03)
[2023-05-30] MEDS: BENZONATATE 100 MG CAPSULE PO PRN (08:37)
[2023-05-30] MEDS: predniSONE 20 MG TAB PO SCH (08:38)
[2023-05-30 08:50] LABS: Basophils # (auto) 0.06 K/uL (0.00-0.20); Basophils % (auto) 0.3 %; Eosinophils # (auto) 0.02 K/uL (0.00-0.50); Eosinophils % (auto) 0.1 %; Hematocrit (blood only) 34.7 % (37.0-47.0); Hemoglobin 11.4 g/dl (12.0-16.0); Immature Granulocytes # (auto) 0.41 K/uL (0.01-0.20); Immature Granulocytes % (auto) 2.3 %; Lymphocytes # (auto) 3.76 K/uL (1.20-3.40); Lymphocytes % (auto) 21.3 %; Mean Corpuscular Hemoglobin 29.2 pg (25.0-34.0); Mean Corpuscular Hgb Conc 32.9 g/dL (32.0-36.0); Mean Corpuscular Volume 88.7 fL (80.0-100.0); Monocytes # (auto) 1.34 K/uL (0.11-0.59); Monocytes % (auto) 7.6 %; Neutrophils # (auto) 12.04 K/uL (1.40-6.50); Neutrophils % (auto) 68.4 %; Platelet Count 402 K/uL (130-400); RDW Coefficient of Variation 13.5 % (11.5-14.5); RDW Standard Deviation 43.9 fL (36.4-46.3); Red Blood Count 3.91 M/uL (4.20-5.40); White Blood Count 17.63 K/ul (4.8-10.8)
[2023-05-30] MEDS: FLUTICASONE/VILANTEROL 100/25MCG 14 PUFFS/INHALER INH SCH (09:00)
[2023-05-30 09:08] LABS: BUN Creatinine Ratio 5.3 (10-20); Calcium 8.6 mg/dl (8.6-10.3); Creatinine Clr Calc Pharmacy 127.7 ml/min; Est GFR (African American) 142.2 ml/min; Est GFR (Non-African American) 122.7 ml/min
--- NOTE | 2023-05-30 09:11 | Pulmonology Progress Note ---
Date of Service May 30, 2023 Assessment & Plan (1) Asthma exacerbation: Asthma persistence: persistent Asthma severity: moderate Qualified Code(s): J45.41 - Moderate persistent asthma with (acute) exacerbation (2) Pneumonia: Laterality: bilateral Lung location: unspecified part of lung P neumonia type: due to unspecified organism Qualified Code(s): J18.9 - Pneumonia, unspecified organism (3) Rhinovirus infection: Plan Impression: 33-year-old female with prior history of asthma who actively abuses tobacco products admitted for asthma exacerbation with multifocal airspace opacities on CT scan. Patient continues to do well on room air. She noticed some dark color/concerns for blood tinged sputum this morning. Recommendations: 1. Community-acquired pneumonia: Multifocal. Currently on Rocephin and azithromycin. She is continuing to improve and has good airway clearance. She did have concern for blood-tinged sputum versus brownish discoloration. I did do some of her sputum which appeared more rust tinged than anything. Regardless, this is less of a concern in a patient with findings of multifocal pneumonia. I did review with this with her at great length. Would continue with pulmonary toileting. She can receive her intravenous antibiotics today. Can hopefully be discharged soon with a p.o. course of Ceftin and finishing the course of azithromycin. Would complete steroids as well as she does have a slight apical expiratory wheeze. 2. Asthma: Continue with Breo as a maintenance inhaler. Continue as needed albuterol Atrovent. Complete PO prednisone. 3. Smoking cessation encouraged. 4. Abnormal CT scan: Suspect this represents infectious/inflammatory etiology. Follow-up CT imaging in 8 to 12 weeks is recommended to document resolution and ensure no evidence of bronchiectasis or other potential underlying lung disease. Thank you for allowing us to participate in the care of this patient. Admission and Anticipated Discharge Date Admission Date: May 29, 2023 Supervising Physician Co-Signing Physician Notes I saw and evaluated the patient with DIAMANTE Keys, and agree with findings and plan as documented in the note. Patient seen and examined at bedside. No acute distress, no adverse events overnight. She was saturating 96% on room air. She says she is feeling much better compared to yesterday. Fair appetite. Denies any chest pain. Shortness of breath is improved No nausea or vomiting. Patient's nurse was in the room at the time of examination. Constitutional: No acute distress HEENT: EOMI, PERRLA, subdued hoarse voice Respiratory system: Good air entry bilaterally, no wheeze, no rhonchi, no crackles CVS: S1-S2 positive, no murmurs or gallops Abdomen: Soft, nontender, nondistended, positive bowel sounds x4 Extremities: +2 pulses bilaterally radialis/ dorsalis pedis, no cyanosis, no edema Neuro: Awake alert oriented x3 Psych: Normal mood and affect G/U: No Wright Plan: Complete the course of tapering prednisone for total of 5 days, 40 mg for 3 followed by 20 mg for 2. Complete the course of antibiotics Patient will benefit from a standing inhaler on discharge. Breo 100 daily or Symbicort 80-4.5 mcg 2 puffs twice a day along with as needed albuterol Continue with Mucinex and flutter valve Recommend CT chest to be done in 8-12 weeks to follow-up on the infiltrate Please note the above document was generated using voice recognition software. It may contain grammatical, syntax or spelling errors.Any formal questions or concerns about the content, text or information contained within the body of this dictation should be directly addressed to the provider for clarification. Subjective Patient seen and evaluated at bedside. She reports that she noticed some rust colored tinges in her sputum and possibly reddish material, and she is concerned for blood. She reports that she did sleep well, but notes that after receiving her morning nebulizer treatment, she has coughed a significant amount and is able to clear her secretions. She does not see a primary provider regularly. She does report feeling somewhat better if she is clearing her secretions. Review of Systems 2 Review of Systems: Please refer to admission H&P. No additions or deletions Physical Exam 2 Physical Exam: VITAL SIGNS - Vital signs and nursing notes were reviewed. GENERAL - 33-year-old female appearing her stated age who is in no acute distress. Communicates well with provider and answers questions appropriately. LUNGS - Auscultation reveals slight apical wheezes noted. No rales or rhonchi appreciated. CARDIAC - RRR with S1/S2. No murmur, rubs, or gallops appreciated. PSYCH - A&Ox3 and cooperates fully with examiner. Pt is very pleasant and interacts well with examiner. Results & Data Results & Data Vital Signs (Past 12 Hours) Vital Signs Temp Pulse Pulse Resp BP Pulse Ox O2 Del Method 05/30/23 08:00 Room Air 05/30/23 07:21 87 18 91 Room Air 05/30/23 07:03 36.3 C L 119 H 20 113/70 93 Room Air 05/30/23 03:02 36.7 C 100 H 16 129/86 93 Room Air 05/30/23 00:04 72 18 91 Room Air 05/29/23 22:55 36.9 C 88 18 117/80 94 Room Air 05/29/23 22:03 67 Laboratory Results 05/30/23 08:31 05/30/23 08:31 PG Care Time/CCT Total # of Minutes Spent Total Time Spent with Patient: Total time spent is greater than 50% in coordination of care (as documented) at patient's floor/unit and/or counseling patient: Coding Level of Care Code 47671 SUB INP/OBS CARE 2/35MIN Diagnoses Asthma exacerbation J45.41 Asthma persistence: persistent Asthma severity: moderate Pneumonia J18.9 Laterality: bilateral Lung location: unspecified part of lung Pneumonia type: due to unspecified organism Rhinovirus infection B34.8
--- NOTE | 2023-05-30 17:03 | Hospitalist Progress Note ---
Date of Service May 30, 2023 Assessment & Plan (1) Severe sepsis: Plan: SIRS plus lactic acidosis secondary to community-acquired pneumonia Initial rhinovirus with superimposed bacterial infection Asthma exacerbation secondary to above, patient describes persistent asthma of at least moderate severity given almost daily use of mother's MDI medication Hyperglycemia rule out DM Ongoing tobacco abuse 05/29 Improving Continue antibiotics, prednisone, [facility] Pulmonology service on board Will need repeat CT chest [facility] Full code Admission and Anticipated Discharge Date Admission Date: May 29, 2023 Subjective Follow-up for pneumonia, asthma exacerbation Seen resting in bed, comfortable, not in distress States she feels improved compared yesterday but still having cough, occasional dyspnea No chest pain, fevers or chills No other new symptoms Review of Systems Review of Systems: all noted and negative except for above Physical Exam Physical Exam: General- oriented x 3, not in distress, speaks in sentences with no effort or accessory muscle use Eyes- anicteric Neck- no JVD Lungs-positive crackles, no wheeze Heart- normal rate, regular rhythm; no murmurs Abdomen- normal bowel sounds, nondistended, soft, no tenderness Extremities- no pretibial edema, no calf tenderness Neuro- alert, oriented x 3; no gross focal neurologic deficits Skin- warm & dry Results & Data Results & Data Vital Signs (Past 12 Hours) Vital Signs Temp Pulse Pulse Pulse Pulse Resp Resp 05/30/23 14:56 36.3 C L 73 18 05/30/23 13:13 91 H 16 05/30/23 11:27 36.6 C 64 18 05/30/23 11:04 58 L 05/30/23 09:52 118 H 86 18 05/30/23 08:00 05/30/23 07:21 87 18 05/30/23 07:03 36.3 C L 119 H 20 Resp BP Pulse Ox Pulse Ox Pulse Ox O2 Del Method 05/30/23 14:56 119/76 94 Room Air 05/30/23 13:13 95 Room Air 05/30/23 11:27 128/82 97 Room Air 05/30/23 11:04 05/30/23 09:52 17 93 96 05/30/23 08:00 Room Air 05/30/23 07:21 91 Room Air 05/30/23 07:03 113/70 93 Room Air all noted and reviewed including below
[2023-05-30] MEDS ORDERED: Nursing to Pharmacy Communication SCH (20:15)
[2023-05-30] MEDS: guaiFENesin 600 MG TABCR PO SCH (21:28)
[2023-05-31] MEDS: ENOXAPARIN INJ 40 MG/0.4 ML SYR SQ SCH (08:13)
--- NOTE | 2023-05-31 08:46 | Pulmonology Progress Note ---
Date of Service May 31, 2023 Assessment & Plan (1) Asthma exacerbation: Asthma persistence: persistent Asthma severity: moderate Qualified Code(s): J45.41 - Moderate persistent asthma with (acute) exacerbation (2) Pneumonia: Laterality: bilateral Lung location: unspecified part of lung Pneumonia type: due to unspecified organism Qualified Code(s): J18.9 - Pneumonia, unspecified organism (3) Rhinovirus infection: Plan Impression: 33-year-old female with prior history of asthma who actively abuses tobacco products admitted for asthma exacerbation with multifocal airspace opacities on CT scan. Patient continues to do well on room air. She noticed some dark color/concerns for blood tinged sputum this morning. Recommendations: 1. Community-acquired pneumonia: Multifocal. Currently on Rocephin and azithromycin. She is continuing to improve and has good airway clearance. She did have concern for blood-tinged sputum versus brownish discoloration. I did do some of her sputum which appeared more rust tinged than anything. Regardless, this is less of a concern in a patient with findings of multifocal pneumonia. We discussed this again today, and she has noticed less of the tinged sputum than previously. Again, the patient has clinically improved. She is without wheezing today. Would continue with outpatient pulmonary toileting as she had learned in the hospital setting. She can be discharged on her course of Ceftin and azithromycin as previously discussed. She should be on a maintenance inhaler moving forward of an ICS/LABA combination. She is welcome to follow-up with pulmonary medicine in the outpatient setting in the next 8 to 12 weeks with follow-up chest CT. Additionally, patient likely would warrant outpatient pulmonary function testing to establish her baseline, but would defer this for several weeks until she has symptomatically improved as well. 2. Asthma: Again, continue with ICS/LABA medication for maintenance in the outpatient setting. Continue as needed albuterol Atrovent. Complete PO prednisone. 3. Smoking cessation encouraged. 4. Abnormal CT scan: Suspect this represents infectious/inflammatory etiology. Follow-up CT imaging in 8 to 12 weeks is recommended to document resolution and ensure no evidence of bronchiectasis or other potential underlying lung disease. Thank you for allowing us to participate in the care of this patient. Pulmonary medicine will sign off at this time. Patient is stable for discharge from pulmonary perspective. Admission and Anticipated Discharge Date Admission Date: May 29, 2023 Supervising Physician Co-Signing Physician Notes I saw and evaluated the patient with DIAMANTE Keys, and agree with findings and plan as documented in the note. Patient seen and examined at bedside. No acute distress, no adverse events overnight. She was saturating 96% on room air. She says she is feeling much better compared to yesterday. Fair appetite. Denies any chest pain. Shortness of breath is improved No nausea or vomiting. Patient's nurse was in the room at the time of examination. Constitutional: No acute distress HEENT: EOMI, PERRLA, subdued hoarse voice Respiratory system: Good air entry bilaterally, minimal expiratory wheeze, no rhonchi, no crackles CVS: S1-S2 positive, no murmurs or gallops Abdomen: Soft, nontender, nondistended, positive bowel sounds x4 Extremities: +2 pulses bilaterally radialis/ dorsalis pedis, no cyanosis, no edema Neuro: Awake alert oriented x3 Psych: Normal mood and affect G/U: No Wright Plan: Complete the course of tapering prednisone for total of 7 days, 40 mg for 3 followed by 20 mg for 4. Complete the course of antibiotics Patient will benefit from a maintenance inhaler on discharge. Breo 100 daily or Symbicort 80-4.5 mcg 2 puffs twice a day along with as needed albuterol Continue with Mucinex and flutter valve Recommend CT chest to be done in 8-12 weeks to follow-up on the infiltrate Case was discussed with Dr. Shaikh No further recommendation from pulmonary perspective, will sign off Please call directly with any questions Please note the above document was generated using voice recognition software. It may contain grammatical, syntax or spelling errors.Any formal questions or concerns about the content, text or information contained within the body of this dictation should be directly addressed to the provider for clarification. Subjective Patient seen and evaluated at bedside. She reports that she is feeling better with her breathing. She complains of some lower back pain which is worse with cough. No fevers or chills. She reports that the nebulized therapies have been helping her symptoms. Review of Systems Review of Systems: Please refer to admission H&P. No additions or deletions Physical Exam Physical Exam: VITAL SIGNS - Vital signs and nursing notes were reviewed. GENERAL - 33-year-old female appearing her stated age who is in no acute distress. Communicates well with provider and answers questions appropriately. LUNGS - Auscultation reveals improvement without wheezes, rales, or rhonchi appreciated. CARDIAC - RRR with S1/S2. No murmur, rubs, or gallops appreciated. PSYCH - A&Ox3 and cooperates fully with examiner. Pt is very pleasant and interacts well with examiner. Results & Data Results & Data Vital Signs (Past 12 Hours) Vital Signs Temp Pulse Pulse Resp BP Pulse Ox O2 Del Method 05/31/23 07:34 65 05/31/23 07:17 36.7 C 92 H 18 117/78 100 Other 05/31/23 07:05 99 H 16 95 Room Air 05/31/23 04:16 37.1 C 63 20 123/75 95 Room Air 05/31/23 01:02 76 18 95 Room Air 05/30/23 23:31 36.7 C 67 20 126/83 96 Room Air 05/30/23 23:26 71 05/30/23 20:50 Room Air PG Care Time/CCT Total # of Minutes Spent Total Time Spent with Patient: Total time spent is greater than 50% in coordination of care (as documented) at patient's floor/unit and/or counseling patient: Coding Level of Care Code 53478 SUB INP/OBS CARE 2/35MIN Diagnoses Asthma exacerbation J45.41 Asthma persistence: persistent Asthma severity: moderate Pneumonia J18.9 Laterality: bilateral Lung location: unspecified part of lung Pneumonia type: due to unspecified organism Rhinovirus infection B34.8
[2023-05-31 11:39] VITALS: BP 115/74; TEMP 98.2
--- NOTE | 2023-05-31 12:55 | Discharge Summary ---
Discharge Summary Date of Service May 31, 2023 Notes For Next Care Provider Repeat CT chest in 2 months Medication Changes From Visit Cefuroxime, azithromycin Prednisone taper Breo--- not covered by insurance, changed to Advair Mucinex- Levalbuterol/ipratropium nebulization Admission HPI Per Admitting Provider History obtained from patient, family, and records. Medical history significant for asthma, ongoing tobacco abuse. Patient noted worsening asthma symptoms since last year. Has not had a PCP for years. Patient would use mother's MDI for daily cough symptoms. 2-week history of flulike symptoms followed by dry cough later productive of junky green sputum. Shortness of breath and bodyaches. Denies aspiration. Some nausea and emesis without abdominal pain. Hoarseness noted 3 days ago. Sick contacts at home. Prednisone, doxycycline, and ceftriaxone administered at the ER. Medical History as above Surgical History : Eye surgery Family History : COPD Personal/Social history : 2 cigarettes a day, occasional EtOH intake, unemployed Admission Exam Per Admitting Provider GENERAL: Comfortable, dysphonic, no respiratory distress SKIN: Normal color, warm HEENT: [place] palpebral conjunctivae, no ptosis, dry buccal mucosa NECK : Supple, no tenderness CHEST : Decreased breath sounds, diffuse expiratory wheezes, no tenderness HEART : Tachycardic, no obvious murmurs ABDOMEN: Some distention, nontender EXTREMITIES : No LE swelling/tenderness, no other conspicuous deformities noted NEUROLOGIC : Coherent, no facial asymmetry, no other gross focality Principal Dx & Hospital Course #1 = Principal Diagnosis (1) Severe sepsis: SIRS plus lactic acidosis secondary to community-acquired pneumonia, bilateral Initial rhinovirus with superimposed bacterial infection Asthma exacerbation secondary to above, patient describes persistent asthma of at least moderate severity given almost daily use of mother's MDI medication Hyperglycemia rule out DM Ongoing tobacco abuse CT chest: Moderate airspace consolidations, PREFERENTIALLY involving the right middle lobe, lingula, and lung bases, consistent with multilobar pneumonia. Pulmonology service consulted Placed on ceftriaxone plus azithromycin Nebs every 6 hours Breo Ellipta Prednisone 40 mg daily Mucinex twice daily Patient clinically improved Two-step exercise test: Does not require supplemental oxygen Discharge plan: Cefuroxime plus doxycycline x 7 days Prednisone taper x 7 days Nebs Advair as Breo not covered by insurance Mucinex Follow-up CT imaging in 8 to 12 weeks is recommended to document resolution and ensure no evidence of bronchiectasis or other potential underlying lung disease. Follow-up with pulmonology clinic plan of care discussed with patient in detail and at length all questions answered she is understanding, agreeable, comfortable with the plan of care Discharge Exam General- oriented x 3, not in distress, speaks in sentences with no effort or accessory muscle use Eyes- anicteric Neck- no JVD Lungs-mild intermittent crackles bilaterally, no wheezing Good air entry bilaterally Heart- normal rate, regular rhythm; no murmurs Abdomen- normal bowel sounds, nondistended, soft, nontender Extremities- no pretibial edema, no calf tenderness Neuro- alert, oriented x 3; no gross focal neurologic deficits Skin- warm & dry Updated Medication List Medication Instructions Recorded Confirmed Type azithromycin 250 mg tablet 250 mg PO QAM 3 days #3 tabs 05/30/23 Rx cefuroxime axetil 500 mg tablet 500 mg PO BID 7 days #14 tabs 05/30/23 Rx guaifenesin 600 mg tablet, 600 mg PO Q12 7 days #14 tabs 05/30/23 Rx extended release 12 hr (Mucinex) ipratropium bromide 0.02 % 0.5 mg (2.5 mL) inhalation Q4H PRN 05/30/23 Rx solution for inhalation shortness of breath or wheezing #62.5 mL levalbuterol HCl 1.25 mg/3 mL 1.25 mg (3 mL) NEB Q4H PRN 05/30/23 Rx solution for nebulization shortness of breath or wheezing #72 mL fluticasone propionate 115 2 inh inhalation BID #12 grams 05/31/23 Rx mcg-salmeterol 21 mcg/actuation HFA inhaler (Advair HFA) prednisone 10 mg tablet 10 mg PO DIRECTED #22 tabs 05/31/23 Rx Hospital Stay Data Consultations 05/28/23 23:45 ED Decision to Admit Stat 05/29/23 06:32 Consult Pulmonology Routine Diagnostic Imagining Performed Laboratory Results WBC 17.63 K/ul (4.8-10.8) H 05/30/23 08:31 RBC 3.91 M/uL (4.20-5.40) L 05/30/23 08:31 Hgb 11.4 g/dl (12.0-16.0) L 05/30/23 08:31 Hct 34.7 % (37.0-47.0) L 05/30/23 08:31 MCV 88.7 fL (80.0-100.0) 05/30/23 08:31 MCH 29.2 pg (25.0-34.0) 05/30/23 08:31 MCHC 32.9 g/dL (32.0-36.0) 05/30/23 08:31 RDW Std Deviation 43.9 fL (36.4-46.3) 05/30/23 08:31 RDW Coeff of Akira 13.5 % (11.5-14.5) 05/30/23 08:31 Plt Count 402 K/uL (130-400) H 05/30/23 08:31 MPV 9.0 fL (9.4-12.4) L 05/30/23 08:31 Immature Gran % (Auto) 2.3 % 05/30/23 08:31 Neut % (Auto) 68.4 % 05/30/23 08:31 Lymph % (Auto) 21.3 % 05/30/23 08:31 Jefferson % (Auto) 7.6 % 05/30/23 08:31 Eos % (Auto) 0.1 % 05/30/23 08:31 Baso % (Auto) 0.3 % 05/30/23 08:31 Neut # (Auto) 12.04 K/uL (1.40-6.50) H 05/30/23 08:31 Lymph # (Auto) 3.76 K/uL (1.20-3.40) H 05/30/23 08:31 Jefferson # (Auto) 1.34 K/uL (0.11-0.59) H 05/30/23 08:31 Eos # (Auto) 0.02 K/uL (0.00-0.50) 05/30/23 08:31 Baso # (Auto) 0.06 K/uL (0.00-0.20) 05/30/23 08:31 Immature Gran # (Auto) 0.41 K/uL (0.01-0.20) H 05/30/23 08:31 RBC Morphology Unremarkable 05/29/23 03:41 APTT 26 Seconds (21-31) 05/28/23 23:36 PTT Ratio 0.9 05/28/23 23:36 ABG pH 7.42 (7.35-7.45) 05/29/23 03:41 ABG pCO2 37 mmHg (35-46) 05/29/23 03:41 ABG pO2 71 mmHg (80-95) L 05/29/23 03:41 ABG HCO3 24 mmol/L (19-24) 05/29/23 03:41 ABG O2 Saturation 96.7 % (90-95) H 05/29/23 03:41 ABG Base Excess -0.2 mEq/L (-9-1.8) 05/29/23 03:41 David Test Pos (Pos) 05/29/23 03:41 Oxygen Given ROOM AIR 05/29/23 03:41 Sodium 141 mmol/L (136-145) 05/30/23 08:31 Potassium 4.0 mmol/L (3.5-5.1) 05/30/23 08:31 Chloride 107 mmol/L (98-107) 05/30/23 08:31 Carbon Dioxide 27 mmol/L (21-32) 05/30/23 08:31 Anion Gap 7 (3-11) 05/30/23 08:31 BUN 3 mg/dl (6-23) L 05/30/23 08:31 Creatinine 0.57 mg/dl (0.6-1.2) L 05/30/23 08:31 Est Cr Clr Drug Dosing 127.7 ml/min 05/30/23 08:31 Est GFR ( Amer) 142.2 ml/min 05/30/23 08:31 Est GFR (Non-Af Amer) 122.7 ml/min 05/30/23 08:31 BUN/Creatinine Ratio 5.3 (10-20) L 05/30/23 08:31 Glucose 104 mg/dl (70-99(Fasting)) H 05/30/23 08:31 Estimat Average Glucose 131 mg/dl 05/29/23 03:41 Hemoglobin A1c 6.2 % (4.5-5.6) H 05/29/23 03:41 Lactate 1.9 mmol/L (0.4-2.0) 05/29/23 03:41 Calcium 8.6 mg/dl (8.6-10.3) 05/30/23 08:31 Magnesium 1.9 mg/dl (1.7-2.4) 05/28/23 22:37 Total Bilirubin 0.4 mg/dl (0.2-1.0) 05/28/23 22:37 AST 14 U/L (13-39) 05/28/23 22:37 ALT 14 U/L (7-52) 05/28/23 22:37 Alkaline Phosphatase 92 U/L (34-104) 05/28/23 22:37 Total Protein 7.5 gm/dl (6.0-8.3) 05/28/23 22:37 Albumin 3.9 gm/dl (3.4-5.0) 05/28/23 22:37 Globulin 3.6 gm/dl (2.5-4.0) 05/28/23 22:37 Albumin/Globulin Ratio 1.1 (0.9-2) 05/28/23 22:37 HCG, Qual Negative (Negative) 05/28/23 22:37 Nasal Screen MRSA (PCR) Negative (Negative) 05/29/23 07:35 Adenovirus (PCR) Not Detected (NotDetected) 05/28/23 22:06 B. pertussis DNA (PCR) Not Detected (NotDetected) 05/28/23 22:06 B.parapertussis DNA PCR Not Detected (NotDetected) 05/28/23 22:06 C. pneumoniae DNA (PCR) Not Detected (NotDetected) 05/28/23 22:06 Coronavirus OC43 (PCR) Not Detected (NotDetected) 05/28/23 22:06 Coronavirus HKU1 (PCR) Not Detected (NotDetected) 05/28/23 22:06 Coronavirus 229E (PCR) Not Detected (NotDetected) 05/28/23 22:06 SARS-CoV-2 (PCR) Not Detected (NotDetected) 05/28/23 22:06 Coronavirus NL63 (PCR) Not Detected (NotDetected) 05/28/23 22:06 Human Metapneumovir PCR Not Detected (NotDetected) 05/28/23 22:06 Influenza Type A (PCR) Not Detected (NotDetected) 05/28/23 22:06 Influenza Type B (PCR) Not Detected (NotDetected) 05/28/23 22:06 M. pneumoniae (PCR) Not Detected (NotDetected) 05/28/23 22:06 Parainfluenza 1 (PCR) Not Detected (NotDetected) 05/28/23 22:06 Parainfluenza 2 (PCR) Not Detected (NotDetected) 05/28/23 22:06 Parainfluenza 3 (PCR) Not Detected (NotDetected) 05/28/23 22:06 Parainfluenza 4 (PCR) Not Detected (NotDetected) 05/28/23 22:06 RSV (PCR) Not Detected (NotDetected) 05/28/23 22:06 Entero/Rhino (PCR) DETECTED (NotDetected) A 05/28/23 22:06 Impressions Chest X-Ray 05/28/23 23:00 XR chest 1V portable CLINICAL HISTORY: sob TECHNIQUE: Single frontal radiograph of the chest was obtained. Comparison: Comparison is made to CTA chest 06/17/2022 FINDINGS: No lines and tubes are seen. The cardiomediastinal silhouette is normal. Faint bibasilar airspace opacities are seen. No evidence of pleural effusion or pneumothorax. IMPRESSION: Faint bibasilar airspace opacities which may represent atelectasis, pneumonia, and/or aspiration. ACT 112: Negative or not required by law. Electronically signed by: Gabriel Zimmerman M.D. 05/29/2023 8:30 AM Chest CTA 05/29/23 00:09 Exam(s): CTA CHEST IV Amt: 117 ML EXAM: CT Angiography Chest With Intravenous Contrast CLINICAL HISTORY: Reason for exam: sob. TECHNIQUE: Axial computed tomographic angiography images of the chest with intravenous contrast. CTDI is 19 mGy and DLP is 305.84 mGy-cm. Automated exposure control was utilized for the study. A dose lowering technique was utilized adhering to the principles of ALARA. MIP reconstructed images were created and reviewed. COMPARISON: No relevant prior studies available. FINDINGS: Pulmonary arteries: Unremarkable. No pulmonary embolism. Aorta: No acute findings. No thoracic aortic aneurysm. Lungs: Moderate airspace consolidations, perforation involving the right middle lobe, lingula, and lung bases, consistent with multilobar pneumonia. Pleural space: Unremarkable. No significant effusion. No pneumothorax. Heart: Unremarkable. No cardiomegaly. No significant pericardial effusion. No evidence of RV dysfunction. Bones/joints: No acute fracture. No dislocation. Soft tissues: Unremarkable. Lymph nodes: Unremarkable. No enlarged lymph nodes. IMPRESSION: Moderate airspace consolidations, perforation involving the right middle lobe, lingula, and lung bases, consistent with multilobar pneumonia. Electronically signed by: Sanjeev Puckett MD 05/29/23 02:10 AM Pending Results Patient Have Any Pending Studies at Discharge: No Discharge Instructions Given to Patient (Per Discharging Provider) PLEASE REFER TO YOUR NEW MEDICATION LIST AND FOLLOW INSTRUCTIONS CAREFULLY. YOUR NEW MEDICATIONS INCLUDE: Cefuroxime, azithromycin-antibiotics for pneumonia Prednisone-steroid for asthma exacerbation [id number] control of asthma Mucinex-for cough Levalbuterol/ipratropium nebulization-as needed for shortness of breath or wheezing Please take a probiotic daily and eat yogurt daily for at least 1 month to pr event diarrhea from antibiotics. Drink plenty of fluids. Continue using Flutter Valve 4x a day. You need a repeat CT scan of your chest in 2 months. Your primary care physician can arrange for this. After the CT scan, please follow up with [employer] Dr. Reilly. Please call his office for an appointment. Contact information outlined above. PLEASE CALL YOUR PRIMARY CARE PHYSICIAN OR RETURN TO THE ER IF WITH WORSENING OF SYMPTOMS, INCLUDING Shortness of breath, cough, fevers or chills, weakness, etc. FOLLOW UP WITH PRIMARY CARE PHYSICIAN IN 1 WEEK. TAKE CARE. Total Time Total Time Spent Total Time Spent (In Minutes): >30minutes
[2023-05-31 13:37] VITALS: PULSE 91; RESP 16; O2SAT 93
== END 2023-05-31 14:56 | disposition home or self-care (01) | DRG 871 ==
LOC: ED 21:39 → EDINP 05-29 00:11 → 2N 05-29 16:06